=== PATIENT | female | born 1955 | race Caucasian/White ===

== ENCOUNTER 2016-10-07 12:07 | Emergency (ER) | payer OTHER ==
[~2016-10-07] VITALS: Ht 170.2 cm; Wt 80.5 kg
[~2016-10-07 12:07] MED LIST: ACETAMINOPHEN-1 EAC1 PO; AMOXICILLIN500 MG PO; ASPIR-LOW81 MG PO; ASPIR-TRIN325 M1 PO; ATARAX,VISTARIL25 MG PO; Atarax,Vistaril PO; BENZONATATE100 MG PO; CALCITRIOL0.5 MCG PO; CALCIUM; CALCIUM ACETAT667 M1 PO; CALCIUM ACETAT667 MG PO; COMPAZINE10 MG PO; CYMBALTA30 MG PO; Carafate PO; DARVOCET-N 51 TABLET PO; DEXILANT60 MG PO; DOXYCYCLINE HY100 M3 PO; DUONEB 2.5-0.5 M3 ML AEROSOL; EFFEXOR XR75 MG PO; FLAGYL500 MG PO; Flexeril PO; HYDROXYZINE HCL25 MG PO; KEFLEX500 MG PO; LEVAQUIN500 MG PO; LEVOFLOXACIN750 MG PO; LEVOTHROID,SY0.15 MG PO; LEVOTHYROXINE PO; LEXAPRO10 MG PO; LOPRESSOR25 MG PO; MAALOX MAXIMUM355 ML PO; MAGNESIUM CITR296 M1 PO; MOBIC15 MG PO; Maalox, Mylanta PO; NEXIUM40 MG PO; OCUFLOX 0.100 DROP/5 RIGHT EAR; PHOSLO667 MG PO; PRAVACHOL20 MG PO; PREDNISONE10 MG PO; PRILOSEC OTC20 M1 PO; PROAIR RESPICL90 MCG IH; PROBIOTIC1 EAC1 PO; PROVENTIL HFA6.7 GM IH; PROVENTIL,2.5 MG/3 M IH; PYRIDIUM200 MG PO; Percocet 5/325,Endoc PO; Phoslo PO; Prevacid PO; RANITIDINE HCL150 M1 PO; RANITIDINE HCL300 MG PO; REQUIP PO; REQUIP1 MG PO; REQUIP2 MG PO; ROCALTROL0.5 MCG PO; Requip PO; SEROQUEL12.5 MG PO; SYNTHROID150 MCG PO; TESSALON PERLE100 MG PO; TRAMADOL HCL50 MG PO; TUMS500 MG PO; TYLENOL WITH C1 EACH PO; ULTRAM50 MG PO; VALIUM10 MG PO; Vicodin,Lortab 5/500 PO; WYGESIC,DARV1 TABLET PO; ZANTAC300 MG PO; ZITHROMAX Z-PA250 MG PO; ZOFRAN ODT4 MG PO; Zofran PO
[2016-10-07 12:57] LABS: HEMATOCRIT 36.8 % (36.0-46.0); MCHC 31.8 G/DL (30.0-36.0); MEAN PLAT.VOLUME 10.2 uM^3 (9.5-12.4); PLATELET COUNT 283 K/uL (156-360); RBC DIS.WIDTH-CV 15.4 % (11.8-14.6); RBC DIS.WIDTH-SD 47.2 % (39-53); RED BLOOD COUNT 4.33 M/uL (3.80-5.20); WHITE BLOOD COUNT 14.6 K/uL (4.1-10.2)
[2016-10-07 13:09] LABS: CHLORIDE 107 mEq/L (99-109); POTASSIUM 3.6 mEq/L (3.7-5.4); SODIUM 146 mEq/L (136-147)
[2016-10-07 13:11] LABS: GLUCOSE 92 mg/dL (70-99)
[2016-10-07 13:13] LABS: ANION GAP 13 MEQ/L (2-14)
[2016-10-07 13:15] LABS: GFR ESTIMATE (CALCULATED) > 59 mL/min/
[2016-10-07 13:16] LABS: UREA NITROGEN (BUN) 13 mg/dL (9-23)
[2016-10-07] MEDS ORDERED: ROBITUSSIN NIG118 ML PO (14:43)
[2016-10-07] MEDS ORDERED: ZYRTEC10 M2 PO (14:43)
[2016-10-07] MEDS ORDERED: FLONASE16 G1 BOTH NARES (14:43)
[2016-10-07] MEDS ORDERED: MUCUS ER600 MG PO (14:43)
[2016-10-07 14:59] VITALS: BP 128/96
== END 2016-10-07 15:00 | disposition home or self-care (01) ==
LOC: EME 12:07
DX: J20.8 Acute bronchitis due to other specified organisms (principal); R51 Headache; E78.5 Hyperlipidemia, unspecified; I10 Essential (primary) hypertension; K21.9 Gastro-esophageal reflux disease without esophagitis; Z87.440 Personal history of urinary (tract) infections; F31.9 Bipolar disorder, unspecified; G89.29 Other chronic pain; Z87.891 Personal history of nicotine dependence
CPT/HCPCS: 71020; 80048; 85027; 99281; 99284

== ENCOUNTER 2017-02-16 11:41 | Emergency (ER) | payer OTHER ==
[~2017-02-16] VITALS: Ht 170.2 cm; Wt 78.8 kg
[~2017-02-16 11:41] MED LIST changes: +FLONASE16 G1 BOTH NARES; +MUCUS ER600 MG PO; +ROBITUSSIN NIG118 ML PO; +ZYRTEC10 M2 PO
[2017-02-16 12:30] LABS: HEMATOCRIT 40.8 % (36.0-46.0); MCH 26.7 PG (29.0-34.0); MCHC 31.9 G/DL (30.0-36.0); MCV 83.8 FL (83-99); MEAN PLAT.VOLUME 10.3 uM^3 (9.5-12.4); PLATELET COUNT 229 K/uL (156-360); RBC DIS.WIDTH-CV 14.6 % (11.8-14.6); RBC DIS.WIDTH-SD 44.3 % (39-53); RED BLOOD COUNT 4.87 M/uL (3.80-5.20); WHITE BLOOD COUNT 7.6 K/uL (4.1-10.2)
[2017-02-16 12:39] LABS: CHLORIDE 106 mEq/L (99-109); POTASSIUM 4.1 mEq/L (3.7-5.4); SODIUM 141 mEq/L (136-147)
[2017-02-16 12:41] LABS: GLUCOSE 112 mg/dL (70-99)
[2017-02-16 12:42] LABS: ANION GAP 11 MEQ/L (2-14)
[2017-02-16 12:43] LABS: TOTAL BILIRUBIN 0.4 mg/dL (0.0-1.0)
[2017-02-16 12:45] LABS: ALKALINE PHOSPHATASE 91 IU/L (3-129); GFR ESTIMATE (CALCULATED) > 59 mL/min/
[2017-02-16 12:46] LABS: UREA NITROGEN (BUN) 18 mg/dL (9-23)
[2017-02-16 12:52] LABS: TROP-I INTERPRETATION NEGATIVE; TROPONIN-I < 0.01 ng/mL (0.0-0.30)
[2017-02-16 13:06] LABS: ADD MIUA? YES; BILIRUBIN NEGATIVE; BLOOD NEGATIVE; COLOR YELLOW ((YELLOW)); GLUCOSE (STRIP) NEGATIVE; KETONES NEGATIVE; LEUKOCYTES SMALL; NITRITE NEGATIVE; PROTEIN (STRIP) NEGATIVE; UROBILINOGEN 0.2 MG/DL (0.2-1.0)
[2017-02-16 13:13] LABS: BACTERIA RARE /HPF; EPITHELIAL CELLS 1+ /HPF; HYALINE CASTS 0-5 /LPF; MUCUS TRACE /LPF; RED BLOOD CELLS 0-5 /HPF (0-5)
[2017-02-16] MEDS ORDERED: ANTIVERT12.5 MG PO (14:09)
[2017-02-16 14:38] VITALS: BP 172/88
== END 2017-02-16 14:39 | disposition home or self-care (01) ==
LOC: EME 11:41
PROVIDERS: Nurse Practitioner Family
DX: R42 Dizziness and giddiness (principal); R53.83 Other fatigue; R06.02 Shortness of breath; R19.7 Diarrhea, unspecified; Z90.710 Acquired absence of both cervix and uterus; Z87.891 Personal history of nicotine dependence
CPT/HCPCS: 71020; 80053; 81003; 84484; 85027; 93005; 99281; 99285; J7030

== ENCOUNTER 2017-06-08 11:23 | Emergency (ER) | payer OTHER ==
[~2017-06-08] VITALS: Ht 170.2 cm; Wt 82.4 kg
[~2017-06-08 11:23] MED LIST changes: +ANTIVERT12.5 MG PO
[2017-06-08 12:27] LABS: HEMATOCRIT 38.9 % (36.0-46.0); HEMOGLOBIN 12.6 G/DL (11.9-15.5); MCH 28.1 PG (29.0-34.0); MCHC 32.4 G/DL (30.0-36.0); MCV 86.6 FL (83-99); PLATELET COUNT 231 K/uL (156-360); RBC DIS.WIDTH-CV 14.9 % (11.8-14.6); RBC DIS.WIDTH-SD 47.5 % (39-53); RED BLOOD COUNT 4.49 M/uL (3.80-5.20); WHITE BLOOD COUNT 7.2 K/uL (4.1-10.2)
[2017-06-08 12:34] LABS: CHLORIDE 103 mEq/L (99-109); POTASSIUM 4.4 mEq/L (3.7-5.4); SODIUM 142 mEq/L (136-147)
[2017-06-08 12:36] LABS: GLUCOSE 106 mg/dL (70-99)
[2017-06-08 12:40] LABS: GFR ESTIMATE (CALCULATED) > 59 mL/min/; UREA NITROGEN (BUN) 13 mg/dL (9-23)
[2017-06-08] MEDS ORDERED: PREDNISONE20 MG PO (13:20)
[2017-06-08] MEDS ORDERED: DOXYCYCLINE HY100 MG PO (13:20)
[2017-06-08 13:31] VITALS: BP 154/96
== END 2017-06-08 13:32 | disposition home or self-care (01) ==
LOC: EME 11:23
DX: J20.9 Acute bronchitis, unspecified (principal); J44.9 Chronic obstructive pulmonary disease, unspecified; E78.5 Hyperlipidemia, unspecified; I10 Essential (primary) hypertension; K21.9 Gastro-esophageal reflux disease without esophagitis; D64.9 Anemia, unspecified; F41.9 Anxiety disorder, unspecified; F32.9 Major depressive disorder, single episode, unspecified; Z88.8 Allergy status to other drugs, medicaments and biological substances; Z87.891 Personal history of nicotine dependence
CPT/HCPCS: 71020; 80048; 85027; 99281; 99284

== ENCOUNTER 2017-08-17 17:09 | Emergency (ER) | payer OTHER ==
[~2017-08-17] VITALS: Ht 170.2 cm; Wt 81.1 kg
[~2017-08-17 17:09] MED LIST changes: +DOXYCYCLINE HY100 MG PO; +PREDNISONE20 MG PO
[2017-08-17 17:54] LABS: HEMATOCRIT 39.4 % (36.0-46.0); HEMOGLOBIN 12.9 G/DL (11.9-15.5); MCHC 32.7 G/DL (30.0-36.0); MCV 85.5 FL (83-99); PLATELET COUNT 255 K/uL (156-360); RBC DIS.WIDTH-CV 14.6 % (11.8-14.6); RBC DIS.WIDTH-SD 45.2 % (39-53); RED BLOOD COUNT 4.61 M/uL (3.80-5.20); WHITE BLOOD COUNT 8.9 K/uL (4.1-10.2)
[2017-08-17 18:02] LABS: CHLORIDE 105 mEq/L (99-109); POTASSIUM 3.9 mEq/L (3.7-5.4); SODIUM 144 mEq/L (136-147)
[2017-08-17 18:03] LABS: GLUCOSE 115 mg/dL (70-99)
[2017-08-17 18:07] LABS: CREATININE 0.9 mg/dL (0.6-1.3); GFR ESTIMATE (CALCULATED) > 59 mL/min/
[2017-08-17 18:08] LABS: UREA NITROGEN (BUN) 10 mg/dL (9-23)
[2017-08-17 18:41] LABS: TROP-I INTERPRETATION NEGATIVE; TROPONIN-I < 0.01 ng/mL (0.0-0.30)
[2017-08-17 21:02] LABS: TROP-I INTERPRETATION NEGATIVE; TROPONIN-I < 0.01 ng/mL (0.0-0.30)
[2017-08-17 21:24] VITALS: BP 144/79
== END 2017-08-17 21:25 | disposition home or self-care (01) ==
LOC: EME 17:09
PROVIDERS: Physician Assistant
DX: R07.9 Chest pain, unspecified (principal); F41.9 Anxiety disorder, unspecified; K21.9 Gastro-esophageal reflux disease without esophagitis; J44.9 Chronic obstructive pulmonary disease, unspecified; I10 Essential (primary) hypertension; E78.5 Hyperlipidemia, unspecified; G25.81 Restless legs syndrome; F32.9 Major depressive disorder, single episode, unspecified; Z87.891 Personal history of nicotine dependence; Z87.440 Personal history of urinary (tract) infections; Z90.711 Acquired absence of uterus with remaining cervical stump; Z88.2 Allergy status to sulfonamides; Z88.6 Allergy status to analgesic agent; Z88.8 Allergy status to other drugs, medicaments and biological substances
CPT/HCPCS: 71046; 80048; 84484; 85027; 85379; 93005; 99281; 99283

== ENCOUNTER 2018-01-08 02:14 | Emergency (ER) | payer OTHER ==
[~2018-01-08] VITALS: Ht 170.2 cm; Wt 79.3 kg
[2018-01-08 02:54] LABS: HEMATOCRIT 38.1 % (36.0-46.0); HEMOGLOBIN 12.4 G/DL (11.9-15.5); MCH 26.5 PG (29.0-34.0); MCHC 32.5 G/DL (30.0-36.0); MCV 81.4 FL (83-99); PLATELET COUNT 258 K/uL (156-360); RBC DIS.WIDTH-CV 15.6 % (11.8-14.6); RBC DIS.WIDTH-SD 46.2 % (39-53); RED BLOOD COUNT 4.68 M/uL (3.80-5.20); WHITE BLOOD COUNT 7.4 K/uL (4.1-10.2)
[2018-01-08 03:12] LABS: APPEARANCE CLEAR ((CLEAR)); BILIRUBIN NEGATIVE; BLOOD NEGATIVE; COLOR YELLOW ((YELLOW)); GLUCOSE (STRIP) NEGATIVE; KETONES 5; LEUKOCYTES NEGATIVE; NITRITE NEGATIVE; PROTEIN (STRIP) NEGATIVE; SPECIFIC GRAVITY 1.014 (1.000-1.030); UCUL ADDED? NO; UROBILINOGEN 0.2 MG/DL (0.2-1.0)
[2018-01-08 03:14] LABS: ALBUMIN 4.3 g/dL (3.2-4.8); CHLORIDE 105 mEq/L (99-109); POTASSIUM 3.7 mEq/L (3.7-5.4); SODIUM 146 mEq/L (136-147)
[2018-01-08 03:16] LABS: GLUCOSE 136 mg/dL (70-99)
[2018-01-08 03:18] LABS: TOTAL BILIRUBIN 0.7 mg/dL (0.0-1.0)
[2018-01-08 03:20] LABS: ALKALINE PHOSPHATASE 102 IU/L (3-129); CREATININE 0.8 mg/dL (0.6-1.3); GFR ESTIMATE (CALCULATED) > 59 mL/min/
[2018-01-08 03:21] LABS: UREA NITROGEN (BUN) 8 mg/dL (9-23)
[2018-01-08 03:22] LABS: AST (GOT) 19 IU/L (2-34)
[2018-01-08 03:23] LABS: ALT (GPT) 21 IU/L (3-49)
[2018-01-08] MEDS ORDERED: ZOFRAN4 MG PO (05:11)
[2018-01-08 05:37] VITALS: BP 119/108
== END 2018-01-08 05:37 | disposition home or self-care (01) ==
LOC: EME 02:14
DX: R11.2 Nausea with vomiting, unspecified (principal); I10 Essential (primary) hypertension; F32.9 Major depressive disorder, single episode, unspecified; K21.9 Gastro-esophageal reflux disease without esophagitis; E78.5 Hyperlipidemia, unspecified; J43.9 Emphysema, unspecified; F41.9 Anxiety disorder, unspecified; Z87.440 Personal history of urinary (tract) infections; Z88.2 Allergy status to sulfonamides; Z88.6 Allergy status to analgesic agent; Z87.891 Personal history of nicotine dependence; Z88.8 Allergy status to other drugs, medicaments and biological substances
CPT/HCPCS: 74177; 80053; 81003; 85027; 99281; 99284; J2405; J7030

== ENCOUNTER 2018-01-20 12:16 | Emergency (ER) | payer OTHER ==
[~2018-01-20] VITALS: Ht 170.2 cm; Wt 80.0 kg
[~2018-01-20 12:16] MED LIST changes: +ZOFRAN4 MG PO
[2018-01-20 13:29] LABS: ALBUMIN 4.3 g/dL (3.2-4.8); CHLORIDE 104 mEq/L (99-109); POTASSIUM 4.2 mEq/L (3.7-5.4); SODIUM 143 mEq/L (136-147)
[2018-01-20 13:31] LABS: GLUCOSE 113 mg/dL (70-99); TOTAL PROTEIN 7.5 g/dL (6.4-8.3)
[2018-01-20 13:33] LABS: TOTAL BILIRUBIN 0.5 mg/dL (0.0-1.0)
[2018-01-20 13:35] LABS: ALKALINE PHOSPHATASE 92 IU/L (3-129); CREATININE 0.8 mg/dL (0.6-1.3); GFR ESTIMATE (CALCULATED) > 59 mL/min/
[2018-01-20 13:36] LABS: UREA NITROGEN (BUN) 11 mg/dL (9-23)
[2018-01-20 13:37] LABS: AST (GOT) 22 IU/L (2-34)
[2018-01-20 13:38] LABS: ALT (GPT) 31 IU/L (3-49)
[2018-01-20 16:59] VITALS: BP 123/61
== END 2018-01-20 17:00 | disposition home or self-care (01) ==
LOC: EME 12:16
PROVIDERS: Physician Assistant
DX: E83.51 Hypocalcemia (principal); R25.2 Cramp and spasm; R94.31 Abnormal electrocardiogram [ECG] [EKG]; Z90.711 Acquired absence of uterus with remaining cervical stump; Z88.2 Allergy status to sulfonamides; Z87.891 Personal history of nicotine dependence
CPT/HCPCS: 80053; 82330; 93005; 99281; 99285; J0610; J7050